=== PATIENT | male | born 1990 | race African-American/Black ===

== ENCOUNTER 2024-12-14 05:29 | Day surgery (SDC) | payer OTHER ==
[2024-12-12 10:36] VITALS: BMI 32.5
[2024-12-14] MEDS ORDERED: LIDOCAINE HCL/PF 1% SDV 5ML VIAL ONE (07:11)
[2024-12-14] MEDS ORDERED: DEXAMETHASONE SOD PHOSPHATE 10 MG/1 ML VIAL ONE (07:12)
[2024-12-14 08:23] VITALS: RESP 18
[2024-12-14] MEDS ORDERED: ACETAMINOPHEN 500 MG TABLET (FP) PO PRN (08:49)
[2024-12-14] MEDS: LIDOCAINE HCL 1% PRESERVATIVE FREE - 30ML VIAL IJ ONE ×2 (08:51)
[2024-12-14] MEDS: IOHEXOL 180 MG/1 ML ML IJ ONE ×2 (08:52)
[2024-12-14] MEDS: DEXAMETHASONE SOD PHOSPHATE 10 MG/1 ML VIAL IM ONE ×2 (08:53)
[2024-12-14 12:01] VITALS: BP 151/101; PULSE 68; TEMP 98.7
== END 2024-12-14 10:05 | disposition home or self-care (01) ==
LOC: JASU-SURG 05:29
PROVIDERS: ATTEND Pain Medicine Pain Medicine
PROC: 3E0R3BZ Introduction of Anesthetic Agent into Spinal Canal, Percutaneous Approach (ICD-10-PCS; 2024-12-14)
PROC: 3E0R33Z Introduction of Anti-inflammatory into Spinal Canal, Percutaneous Approach (ICD-10-PCS; principal; 2024-12-14 09:00)
DX: M54.16 Radiculopathy, lumbar region (principal)
CPT/HCPCS: 76000-TC-FY; J1100